=== PATIENT | female | born 1965 | race Caucasian/White ===

== ENCOUNTER → 2018-06-14 | Outpatient (CLI) | payer SELFPAY ==
[~2018-06-14] MED LIST: ACET500; ALBU90OI INH; ALPR.25 PO; ALPR1 PO; AMOCLA500 PO; AMOCLA875 PO; BENZ100A PO; CALCIT950 PO; CHOL10002 PO; CLAR500 PO; CRUTCH3 USE; CYCL10 PO; FLUT110OIA IH; HYDACE5; IBUP800 PO; LEVFLO500 PO; LORA1 PO; META800 PO; NAPR550 PO; ONDA4 PO; OXYACE5T PO; PARO10 PO; PARO20 PO; PENVK500; PHENA200 PO; PROM25 PO; RANI150 PO; RXCYCL10 PO; RXHYDACE PO; RXLORA1 PO; RXNAPNA550 PO; RXONDA4ODT MM; RXPHEN200 PO; SULTRIDS PO; SUMA25
[2018-06-14 19:27] LABS: BASOPHILS ABSOLUTE AUTO 0.04 K/mm3 (0.00-0.23); BASOPHILS PERCENT AUTO 1 % (0-2); EOSINOPHILS PERCENT AUTO 1 % (0-6); Hematocrit 36.8 % (33.0-51.0); Hemoglobin 11.4 g/dL (11.5-16.0); IMMATURE GRAN ABSOLUTE AUTO 0.05 K/mm3 (0.00-0.10); IMMATURE GRAN PERCENT AUTO 1 % (0-1); LYMPHOCYTES ABSOLUTE AUTO 1.31 K/mm3 (0.84-5.20); LYMPHOCYTES PERCENT AUTO 16 % (21-46); MONOCYTES ABSOLUTE AUTO 0.39 K/mm3 (0.16-1.47); MONOCYTES PERCENT AUTO 5 % (4-13); Mean Corpuscular HGB 20.5 pg (26.0-34.0); Mean Corpuscular Volume 66 fL (80-100); Mean Platelet Volume 11.1 fL (9.1-12.4); NEUTROPHILS ABSOLUTE AUTO 6.15 K/mm3 (1.96-9.15); NEUTROPHILS PERCENT AUTO 77 % (41-73); Platelet Count 217 K/mm3 (150-400); RDW Coefficient Variation 16.3 % (11.7-14.2); RDW Standard Deviation 35.8 fL (35.1-46.3); Red Blood Cell Count 5.56 M/mm3 (3.80-5.20); White Blood Cell Count 8.04 K/mm3 (4.00-11.30)
[2018-06-14 19:36] LABS: Alanine Aminotransfer (ALT/SGP 27 U/L (12-78); Albumin, Blood 4.6 g/dL (3.4-5.0); Albumin/Globulin Ratio 1.4 (0.8-1.8); Alk Phos 55 U/L (40-126); Anion Gap 10 mmol/L (6-16); Aspartate Aminotrans (AST/SGOT 16 U/L (12-37); Bilirubin, Total 0.6 mg/dL (0.1-1.0); Blood Urea Nitrogen 11 mg/dL (8-24); Bun/Creatinine Ratio 12.5 (12.0-20.0); CO2, Blood 27 mmol/L (21-32); Calcium, Blood 9.1 mg/dL (8.5-10.1); Chloride, Blood 102 mmol/L (98-108); Creatinine, Blood 0.88 mg/dL (0.40-1.00); Globulin, Blood 3.4 g/dL (2.2-4.0); Glomerular Filtration Rate >60 (60-); Glucose, Blood 105 mg/dL (70-99); Potassium, Blood 3.7 mmol/L (3.5-5.5); Sodium, Blood 139 mmol/L (136-145)
== END | disposition home or self-care (01) ==
LOC: LAB EV 19:22 → LAB SHORT 19:22
PROVIDERS: Physician Assistant
DX: F17.200 Nicotine dependence, unspecified, uncomplicated (principal)
CPT/HCPCS: 80053; 85025

== ENCOUNTER 2018-10-25 10:20 | Emergency (ER) | payer MEDICAID ==
[~2018-10-25] VITALS: Ht 180.3 cm; Wt 104.3 kg
[2018-10-25 11:03] LABS: Influenza A Negative (NEGATIVE); Influenza B Negative (NEGATIVE)
[2018-10-25 11:20] LABS: BASOPHILS ABSOLUTE AUTO 0.04 K/mm3 (0.00-0.23); BASOPHILS PERCENT AUTO 1 % (0-2); EOSINOPHILS ABSOLUTE AUTO 0.06 K/mm3 (0.00-0.68); EOSINOPHILS PERCENT AUTO 1 % (0-6); Hematocrit 37.2 % (33.0-51.0); Hemoglobin 11.2 g/dL (11.5-16.0); IMMATURE GRAN ABSOLUTE AUTO 0.04 K/mm3 (0.00-0.10); IMMATURE GRAN PERCENT AUTO 1 % (0-1); LYMPHOCYTES ABSOLUTE AUTO 0.57 K/mm3 (0.84-5.20); LYMPHOCYTES PERCENT AUTO 10 % (21-46); MONOCYTES ABSOLUTE AUTO 0.62 K/mm3 (0.16-1.47); MONOCYTES PERCENT AUTO 10 % (4-13); Mean Corpuscular HGB 20.4 pg (26.0-34.0); Mean Corpuscular HGB Conc 30.1 g/dL (31.5-36.5); Mean Corpuscular Volume 68 fL (80-100); Mean Platelet Volume 11.2 fL (9.1-12.4); NEUTROPHILS ABSOLUTE AUTO 4.61 K/mm3 (1.96-9.15); NEUTROPHILS PERCENT AUTO 78 % (41-73); Platelet Count 186 K/mm3 (150-400); RDW Coefficient Variation 15.9 % (11.7-14.2); RDW Standard Deviation 37.2 fL (35.1-46.3); White Blood Cell Count 5.94 K/mm3 (4.00-11.30)
[2018-10-25 11:32] LABS: Alanine Aminotransfer (ALT/SGP 23 U/L (12-78); Albumin, Blood 4.1 g/dL (3.4-5.0); Albumin/Globulin Ratio 1.2 (0.8-1.8); Alk Phos 59 U/L (50-136); Anion Gap 9 mmol/L (6-16); Aspartate Aminotrans (AST/SGOT 16 U/L (12-37); Bilirubin, Total 0.5 mg/dL (0.1-1.0); Blood Urea Nitrogen 12 mg/dL (8-24); Bun/Creatinine Ratio 15.4 (12.0-20.0); CO2, Blood 23 mmol/L (21-32); Calcium, Blood 8.6 mg/dL (8.5-10.1); Chloride, Blood 109 mmol/L (98-108); Creatinine, Blood 0.78 mg/dL (0.40-1.00); Globulin, Blood 3.3 g/dL (2.2-4.0); Glomerular Filtration Rate >60 (60-); Glucose, Blood 114 mg/dL (70-99); Potassium, Blood 3.8 mmol/L (3.5-5.5); Sodium, Blood 141 mmol/L (136-145); Total Protein, Blood 7.4 g/dL (6.4-8.2)
[2018-10-25] MEDS ORDERED: Prednisone20 MG PO (11:32)
[2018-10-25] MEDS ORDERED: ALBU90OI61 INH (11:32)
[2018-10-25] MEDS ORDERED: KETO10 PO (11:34)
[2018-10-25] MEDS ORDERED: Zithromax250 MG PO (11:35)
== END 2018-10-25 12:12 | disposition home or self-care (01) ==
LOC: ER 10:20
PROVIDERS: Physician Assistant
DX: J18.9 Pneumonia, unspecified organism (principal); D56.9 Thalassemia, unspecified; D68.0 Von Willebrand disease; K58.9 Irritable bowel syndrome, unspecified; I47.1 Supraventricular tachycardia; F17.210 Nicotine dependence, cigarettes, uncomplicated; Z88.5 Allergy status to narcotic agent
CPT/HCPCS: 36415; 71046; 80053; 83605; 85025; 87804; 94640; 96365; 99283-25; J0696; J7120

== ENCOUNTER 2019-10-10 09:56 | Day surgery (SDC) | payer OTHER ==
[~2019-10-10 09:56] MED LIST changes: +ALBU90OI61 INH; +KETO10 PO; +Prednisone20 MG PO; +Robaxin-750750 MG PO; +Voltaren100 GM TOP; +Zithromax250 MG PO
== END 2019-10-10 22:53 | disposition home or self-care (01) ==
LOC: MOI MAM 09:56
DX: D24.2 Benign neoplasm of left breast (principal)
CPT/HCPCS: 19081; 88305

== ENCOUNTER 2020-04-09 08:37 | Day surgery (SDC) | payer OTHER ==
[~2020-04-09 08:37] MED LIST changes: +CENTRUM SILVER1 EAC2 PO; +LEVSOD25 PO; +MELA3 PO; +OMEP20ER PO; +STOOL SOFTENER PO; +VITAMIN D325 MC3 PO
== END 2020-04-09 22:49 | disposition home or self-care (01) ==
LOC: MOI MAM 08:37
DX: R92.8 Other abnormal and inconclusive findings on diagnostic imaging of breast (principal)
CPT/HCPCS: 19281

== ENCOUNTER 2020-04-27 21:03 | Observation (INO) | payer OTHER ==
[~2020-04-27] VITALS: Ht 172.7 cm; Wt 105.8 kg
[~2020-04-27 21:03] MED LIST changes: -CENTRUM SILVER1 EAC2 PO; +MULTI VITAMIN1 EACH PO; +[UNRECOGNIZED DRUG - OTHER] PO
[2020-04-27] MEDS ORDERED: SYNTHROID50 MC1 PO (21:17)
[2020-04-27] MEDS ORDERED: HYDPAM25 PO (21:18)
[2020-04-27 21:57] LABS: BASOPHILS ABSOLUTE AUTO 0.04 K/mm3 (0.00-0.23); BASOPHILS PERCENT AUTO 1 % (0-2); EOSINOPHILS ABSOLUTE AUTO 0.06 K/mm3 (0.00-0.68); EOSINOPHILS PERCENT AUTO 1 % (0-6); Hematocrit 36.3 % (33.0-51.0); Hemoglobin 11.1 g/dL (11.5-16.0); IMMATURE GRAN ABSOLUTE AUTO 0.04 K/mm3 (0.00-0.10); IMMATURE GRAN PERCENT AUTO 1 % (0-1); LYMPHOCYTES ABSOLUTE AUTO 1.41 K/mm3 (0.84-5.20); LYMPHOCYTES PERCENT AUTO 21 % (21-46); MONOCYTES ABSOLUTE AUTO 0.47 K/mm3 (0.16-1.47); MONOCYTES PERCENT AUTO 7 % (4-13); Mean Corpuscular HGB 20.7 pg (26.0-34.0); Mean Corpuscular HGB Conc 30.6 g/dL (31.5-36.5); Mean Corpuscular Volume 68 fL (80-100); Mean Platelet Volume 10.6 fL (9.1-12.4); NEUTROPHILS ABSOLUTE AUTO 4.78 K/mm3 (1.96-9.15); NEUTROPHILS PERCENT AUTO 70 % (41-73); Platelet Count 217 K/mm3 (150-400); RDW Coefficient Variation 15.2 % (11.7-14.2); RDW Standard Deviation 36.1 fL (35.1-46.3); Red Blood Cell Count 5.37 M/mm3 (3.80-5.20)
[2020-04-27 22:20] LABS: Alanine Aminotransfer (ALT/SGP 23 U/L (12-78); Albumin, Blood 4.3 g/dL (3.4-5.0); Albumin/Globulin Ratio 1.3 (0.8-1.8); Alk Phos 56 U/L (50-136); Anion Gap 7 mmol/L (6-16); Aspartate Aminotrans (AST/SGOT 24 U/L (12-37); Bilirubin, Total 0.8 mg/dL (0.1-1.0); Blood Urea Nitrogen 12 mg/dL (8-24); Bun/Creatinine Ratio 14.9 (12.0-20.0); CO2, Blood 26 mmol/L (21-32); Calcium, Blood 9.2 mg/dL (8.5-10.1); Chloride, Blood 106 mmol/L (98-108); Creatinine, Blood 0.81 mg/dL (0.40-1.00); Free Thyroxine 1.11 ng/dL (0.70-1.60); Globulin, Blood 3.4 g/dL (2.2-4.0); Glomerular Filtration Rate >60 (60-); Glucose, Blood 122 mg/dL (70-99); Magnesium, Blood 2.4 mg/dL (1.6-2.4); Potassium, Blood 3.9 mmol/L (3.5-5.5); Sodium, Blood 139 mmol/L (136-145); Total Protein, Blood 7.7 g/dL (6.4-8.2)
[2020-04-27 22:27] LABS: Acetaminophen, Random <2.0 ug/mL (10.0-30.0)
[2020-04-27 22:28] LABS: Ethanol (Alcohol), Blood, Med <3 mg/dL
--- NOTE | 2020-04-28 01:00 | NUR ---
REC'D. PATIENT FROM ER VIA STRETCHER. PATIENT LIFTED TO ICU BED AND PLACED ON MONITOR. PATIENT OBTUNDED; SPEECH GARBLED; ORIENTED TO SELF ONLY; FOLLOWS SIMPLE COMMANDS; MOVES ALL EXTREMITIES. NS INFUSING AT 100CC/HR VIA PIV TO RIGHT FOREARM; SALINE LOCK NOTED TO LEFT FOREARM. PATIENT NOTED TO HAVE SATS <90% ON ROOM AIR; PLACED ON OXYGEN AT 2L/MIN VIA NASAL CANNULA. UNABLE TO COMPLETE ADMISSION HISTORY DUE TO PATIENT BEING OBTUNDED. BED LOCKED AND IN LOW POSITION. PATIENT ON 1:1 DIRECT OBSERVATION.
--- NOTE | 2020-04-28 01:00 | NUR ---
UNABLE TO ASK PATIENT SUICIDE QUESTIONS DUE TO GARBLED SPEECH AND PATIENT IS OBTUNDED.
[2020-04-28 01:39] LABS: U Amphetamine Screen Not Detected; U Barbituate Screen Not Detected; U Benzodiazapine Screen Not Detected; U Buprenorphine Screen Not Detected; U Cannabinoids Screen Not Detected; U Cocaine Screen Not Detected; U Methadone Screen Not Detected; U Methamphetamine Screen Not Detected; U Opiates Screen Not Detected; U Oxycodone Screen Not Detected; U Phencyclidine Screen Not Detected; U Propoxyphene Screen Not Detected
--- NOTE | 2020-04-28 02:15 | NUR ---
CALLED POISON CONTROL WITH LATEST SALICYLATE LEVEL AND RESULTS FROM URINE DRUG SCREEN. RECOMMENDATIONS REC'D. FROM POISON CONTROL WERE: SEIZURE PRECAUTIONS; IF PATIENT BECOMES TACHYCARDIC, HYPERTENSIVE, OR AGITATED, TO GIVE BENZOS.; EKG NOW AND Q4H; CALL POISON CONTROL IF QRS >100 OR QTC >470. 0230: CALLED DR. LEE WITH ABOVE RECOMMENDATIONS; REC'D. ORDER FOR EKG'S, SEIZURE PRECAUTIONS, AND TO CALL POISON CONTROL WITH QRS OR QTC CHANGES.
--- NOTE | 2020-04-28 02:30 | NUR ---
0230: EKG DONE; QTC 498. 0240: CALLED POISON CONTROL. REC'D. RECOMMENDATION TO KEEP POTASSIUM LEVEL >4.0, AND MAGNESIUM LEVEL >2.0; BASED ON LABS FROM ER, GIVE POTASSIUM 20MEQ IV NOW, AND RECHECK LABS AFTER POTASSIUM FINISHES INFUSING. 0250: CALLED DR. LEE; REC'D. ORDERS FOR POTASSIUM 20MEQ IV NOW, AND REPEAT LABS AFTER INFUSION COMPLETE. 0310: POTASSIUM 20MEQ IV REC'D. FROM LAB AND STARTED INFUSING.
[2020-04-28 06:07] LABS: BASOPHILS ABSOLUTE AUTO 0.04 K/mm3 (0.00-0.23); BASOPHILS PERCENT AUTO 1 % (0-2); EOSINOPHILS ABSOLUTE AUTO 0.14 K/mm3 (0.00-0.68); EOSINOPHILS PERCENT AUTO 2 % (0-6); Hematocrit 32.3 % (33.0-51.0); Hemoglobin 9.6 g/dL (11.5-16.0); IMMATURE GRAN ABSOLUTE AUTO 0.04 K/mm3 (0.00-0.10); IMMATURE GRAN PERCENT AUTO 1 % (0-1); LYMPHOCYTES ABSOLUTE AUTO 1.34 K/mm3 (0.84-5.20); LYMPHOCYTES PERCENT AUTO 22 % (21-46); MONOCYTES ABSOLUTE AUTO 0.43 K/mm3 (0.16-1.47); MONOCYTES PERCENT AUTO 7 % (4-13); Mean Corpuscular HGB 20.7 pg (26.0-34.0); Mean Corpuscular HGB Conc 29.7 g/dL (31.5-36.5); Mean Corpuscular Volume 70 fL (80-100); NEUTROPHILS ABSOLUTE AUTO 4.15 K/mm3 (1.96-9.15); NEUTROPHILS PERCENT AUTO 68 % (41-73); Platelet Count 198 K/mm3 (150-400); RDW Coefficient Variation 15.7 % (11.7-14.2); RDW Standard Deviation 38.5 fL (35.1-46.3); Red Blood Cell Count 4.63 M/mm3 (3.80-5.20); White Blood Cell Count 6.14 K/mm3 (4.00-11.30)
[2020-04-28 06:33] LABS: Alanine Aminotransfer (ALT/SGP 18 U/L (12-78); Albumin, Blood 3.5 g/dL (3.4-5.0); Albumin/Globulin Ratio 1.2 (0.8-1.8); Alk Phos 49 U/L (50-136); Anion Gap 5 mmol/L (6-16); Aspartate Aminotrans (AST/SGOT 8 U/L (12-37); Bilirubin, Total 0.5 mg/dL (0.1-1.0); Blood Urea Nitrogen 11 mg/dL (8-24); Bun/Creatinine Ratio 11.9 (12.0-20.0); CO2, Blood 28 mmol/L (21-32); Calcium, Blood 8.1 mg/dL (8.5-10.1); Chloride, Blood 110 mmol/L (98-108); Creatinine, Blood 0.93 mg/dL (0.40-1.00); Globulin, Blood 2.8 g/dL (2.2-4.0); Glomerular Filtration Rate >60 (60-); Glucose, Blood 105 mg/dL (70-99); Potassium, Blood 3.7 mmol/L (3.5-5.5); Sodium, Blood 143 mmol/L (136-145); Total Protein, Blood 6.3 g/dL (6.4-8.2)
--- NOTE | 2020-04-28 06:34 | NUR ---
SHIFT SUMMARY: PATIENT REMAINS SOMEWHAT OBTUNDED; AWAKENS AFTER REPEATED VERBAL STIMULATION; ATTEMPTS TO ANSWER QUESTIONS, BUT SPEECH IS VERY GARBLED AND SLURRED; FOLLOWS SIMPLE COMMANDS. IV WITH NS INFUSING AT 100CC/HR VIA PIV TO RIGHT FOREARM. EKG DONE AT 0600 WITH QTC 486. SPOKE WITH POISON CONTROL AT 0630; STILL WAITING FOR AM LABS TO REPORT. SBP 90'S; RHYTHM: SINUS RHYTHM, RATE 80'S; AFEBRILE. PATIENT ABLE TO VOID ON BEDPAN. BED LOCKED AND IN LOW POSITION WITH BED ALARM ON; 1:1 DIRECT OBSERVATION MAINTAINED; SEIZURE PADS IN PLACE. CONTINUE POC. AWAITING DAY SHIFT FOR HANDOFF.
--- NOTE | 2020-04-28 06:57 | NUR ---
CALLED POISON CONTROL WITH MOST RECENT LAB RESULTS. RECOMMENDATIONS FROM POISON CONTROL IS FOR POTASSIUM 40 MEQ IV, THEN RECHECK POTASSIUM LEVEL AND EKG. WILL HAVE DAY SHIFT RN CALL MD FOR ORDER.
--- NOTE | 2020-04-28 10:12 | NUR ---
ASSUMED CARE OF PT AT 0700. REPORT FROM CARMEL WILSON. PT WAKES c VERBAL STIMULI. AT START OF SHIFT, PT MOANS, DOES NOT ANSWER QUESTION. AT REASSESSMENT, PT A&OX 3. ANSWERS QUESTIONS APPROPRIATELY. FOLLOWS COMMANDS. DENIES SI/HI. STATES SHE WAS TRYING TO SLEEP. DENIES TAKING SEROQUEL. STATES SHE TOOK THYROID MEDICATION AND PAXIL. CALM AND COOPERATIVE. VSS. PT 1:1 OBS. [address] DE LA PAZ ASSESSMENT. KCL INFUSING. EKG q4 PER POSION CONTROL. WILL RECHECK BMP 1 HR p KCL. WILL CONTINUE TO MONITOR.
--- NOTE | 2020-04-28 10:42 | NUR ---
Safety Plan interview attempted. Pt awalened brifly and refuse at thi time
--- NOTE | 2020-04-28 13:46 | NUR ---
Safety Plan interview attempted. Pt replied in monotones that were inaudible. Did not open her eyes. When asked if to come back later, she shook her head yes. Sitter reported to this hand sign writer that she has been verbal with providers and her. Keke Bellamy M.Ed., [facility]
[2020-04-28 14:24] LABS: Anion Gap 4 mmol/L (6-16); Blood Urea Nitrogen 8 mg/dL (8-24); Bun/Creatinine Ratio 10.3 (12.0-20.0); CO2, Blood 27 mmol/L (21-32); Calcium, Blood 8.4 mg/dL (8.5-10.1); Chloride, Blood 113 mmol/L (98-108); Creatinine, Blood 0.78 mg/dL (0.40-1.00); Glomerular Filtration Rate >60 (60-); Glucose, Blood 97 mg/dL (70-99); Sodium, Blood 144 mmol/L (136-145)
--- NOTE | 2020-04-28 18:03 | NUR ---
SHIFT SUMMARY PT SLEPT MOST OF DAY. WOKE INTERMITTANTLY. PARTICIPATED IN TELEPSYCH CONSULT abdias OQUENDO. REFUSED TO SPEAK abdias ROY FROM [facility]. PT ANSWERS QUESTIONS APPROPRIATELY. FOLLOWS SIMPLE COMMANDS. ONE PERSON STANDBY ASSIST TO BEDSIDE COMMODE. REFUSED FOOD THIS SHIFT. STATUS CHANGED TO PCU, MODERATE SI RISK. CAMERA MONITORING ON. K REPLACED AND EKGS DONE, QTC TRENDED. PER JOYCELYN AT POISON CONTROL, PT MEDICALLY CLEAR. PT HAD MULTIPLE VISITORS AND CALLS THIS SHIFT. DAUGHTER ELINA VISITED. PT REFUSED TO SIGN CONSENT TO RELEASE INFORMATION TO ANYONE AND STATED SHE DID NOT WANT ANY CALLS OR VISITORS THE REST OF THIS NIGHT. PLAN FOR REEVAL abdias OQUENDO TOMORROW AT 1100. 2MD HOLD CONTINUES. VSS. WILL CONTINUE TO MONITOR UNTIL REPORT TO ONCOMING NURSE.
--- NOTE | 2020-04-28 19:00 | NUR ---
ASSUMED CARE OF PATIENT. REC'D. REPORT FROM KATIE IBRAHIM. PATIENT SLEEPING; AWKAENS TO NAME BEING CALLED; SPEECH CLEAR, ORIENTED; PATIENT REFUSES TO ANSWER QUESTIONS, STATES SHE JUST WANTS TO SLEEP; MOVES ALL EXTREMITIES. RHYTHM: NSR; VSS. BED LOCKED AND IN LOW POSITION; CALL SERNA IN REACH. PATIENT ON CAMERA OBSERVATION.
--- NOTE | 2020-04-28 20:01 | NUR ---
PATIENT REFUSING TO ANSWER QUESTIONS REGARDING SUICIDAL IDEATIONS; STATES SHE JUST WANTS TO SLEEP.
--- NOTE | 2020-04-29 04:00 | NUR ---
PATIENT ASKED IF SHE NEEDED TO VOID; PATIENT STATES "I DON'T HAVE TO GO." PATIENT LAST VOIDED APPROX. 12 HOURS AGO. BLADDER SCAN DONE; RESULTS WERE >475CC. PATIENT INFORMED REGARDING ABOVE. PATIENT ASSISTED TO BSC; VOIDED 650CC CLEAR, YELLOW URINE. PATIENT BACK TO BED. BED LOCKED AND IN LOW POSITION WITH BED ALARM ON. PATIENT REMAINS ON VIDEO MONITOR.
--- NOTE | 2020-04-29 06:11 | NUR ---
SHIFT SUMMARY: PATIENT SLEPT ALL NIGHT. PATIENT AWAKENS TO VERBAL STIMULI; ORIENTED; FOLLOWS COMMANDS; MOVES ALL EXTREMITIES; FLAT AFFECT. PATIENT UP ONCE TO THE BSC TO VOID. RHYTHM: NSR WITH QR INTERVAL 0.1 AND QTC 413. NO LABS ORDERED FOR THIS MORNING. BED LOCKED AND IN LOW POSITION; CALL SERNA IN REACH; BED ALARM ON. PATIENT REMAINS ON VIDEO MONITOR. CONTINUE POC. AWAITING DAY SHIFT RN FOR HANDOFF.
--- NOTE | 2020-04-29 09:00 | NUR ---
Received report from Ramin WISLON. Patient has been sleeping and went and allowed her to sleep until am meds. I aowke her to verbal stimuli and was appropriate with one to two word answers. She denies any appetite and refused breakfast at this time and allwed am med aministration. I let her know she had an appoimntment with Alba Napier at 1100 and she stated OK, He has bilateral 20ga IV's in FA and are flushed and SL'd. She moves all extremities and she rolled over and i told her i would let her sleep until appt. Hospitalist by to see patient and made med no tele moderate observation.
--- NOTE | 2020-04-29 11:15 | NUR ---
Patient has been resting and appropriate with care. She had her appt. with jet Napier and looks to be placed in in patient facility. VSS, See EMR. She is independent in bed with positioning.
--- NOTE | 2020-04-29 13:00 | NUR ---
Dr Sal and Dr Lee by to see patient, [facility] [place] sending packets out for placement. No significant changes with patient. She continues to rest in room. VSS, See EMR. She denies any current needs. She states just wants to sleep.
--- NOTE | 2020-04-29 16:00 | NUR ---
Patient called appropriately to get up to use bathroom and had 300ml yellow urine out and went back to bed and want to go back to sleep. She denies any current needs or pain.
--- NOTE | 2020-04-29 18:49 | NUR ---
Charlotte was emotionally withdrawn and sullen. She said little, but agreed to let me pray for her. She clearly did not want a conversation at this time. I will remain available.
--- NOTE | 2020-04-29 19:45 | NUR ---
54 YR OLD FEMALE RECEIVED FROM ICU POST SUICIDAL ATTEMPT OF SUICIDE POST OVERDOSE OF MEDICATIONS. PRESENTS SELF ALERT AND ORIENTED X 4. CONTRACTS NO SELF HARM FOR 24 HRS. (TO BE REASKED TOMORROW). STATED THAT ALL SHE WANTED TO DO AT THIS TIME IS "GET SOME SLEEP". SHORT CALL LIGHT IN PLACE. CAMERA ON FOR CONTINUOUS OBSERVATION. WILL CONTINUE TO MONITOR
--- NOTE | 2020-04-29 20:27 | NUR ---
NURSE ENTERED PT ROOM, PT WATCHING TV. AFFECT WITHDRAWN. SPOKE RE UNDERLYING CAUSE OF APPARENT SUICIDE ATTEMPT. PT DENIED IT WAS A SUICIDE ATTEMPT, RATHER THAT SHE MIXED THE WRONG MEDS, TO TRY TO GET SOME SLEEP. STATED SHE HADNT HAD SLEEP FOR 3 DAYS... AGREED NO SELF HARM. CONTINUOUS VIDEO MONITORING ON. CALL LIGHT IN REACH
--- NOTE | 2020-04-29 22:59 | NUR ---
"NAM" CALLED FROM [facility] [place] RE PT CLEARANCE FOR PLACEMENT RE PHYSICAL HEALTH. WILL CONTACT MATHEW ORTIZ MGR IN THE AM FOR FOLLOW UP.
--- NOTE | 2020-04-30 04:05 | NUR ---
SHIFT SUMMARY HAS BEEN AWAKE AT INTERVALS THIS SHIFT. VOICED DESIRE TO GO OUTSIDE AND HAVE A CIGARETTE, BUT DECIDED NOT TO AFTER BEING REMINDED THAT SHE WAS ON CLOSE OBSERVATION FOR SUICIDE WATCH. CONTINUOUS VIDEO OBSERVATION MAINTAINED FOR SAFETY. CALL LIGHT IN REACH. CURRENTLY RESTING QUIETLY.
--- NOTE | 2020-04-30 10:41 | NUR ---
Suicide Safety Plan interview at 0930 Rm 351. Pt alert, oriented with eye contact and good humor. She denies overdose,and reports she had not slept in 3 days, and was trying to get sleep. She reports taking several of her Paxil. 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 She was future oriented, plans to get another job, and looks forward to seeing her dog and grandchildren. Reports she recently moved in with daughter and has no bills, so is not "too stressed", and has "never been without a job for more than a week". Reviewed crisis phone number and calming techniques to use. She is "annoyed" that her daughter called the ambulance, and she reports the ambulance advised to let her sleep, but daughter insisted. Pt reports she "climbed on the gurney with her Snapple". Keke Bellamy M.Ed., [facility]
--- NOTE | 2020-04-30 16:59 | NUR ---
SHIFT SUMMARY PT RESTING QUIETLY AT START OF SHIFT. UP TO EOB FOR BREAKFAST. INDEPENDENT IN . CALLED FOR ASSIST TO BTHRM. PT ADMITTED FOR MULTIPLE DRUG OVERDOSE. PT REPORTED THAT SHE HAD INSOMNIA AND TOOK SCHEDULED PAXIL, PRN MELATONIN AND TRAZADONE. PT REPORTED THAT SHE HAD NOT SLEPT FOR SEVERAL DAYS AND DID NOT INTEND TO OD. DR CHENG IN TO SEE PT IN AM AND DR DE LA PAZ LATER IN THE DAY. SI HOLD DROPPED AND DR CHENG NOTIFIED BY DR DE LA PAZ. DR HCENG THEN IN TO SEE PT AND DISCUSS D/C ORDERS WITH PT. ORDERS PLACED; THEN REVIEWED WITH PT WHEN COMPLETED. IV SITES D/C'D. PT CALLED HER SON FOR P/U. PT ASSISTED OUT TO SON'S CAR VIA W/C BY PAMELA.
== END 2020-04-30 17:05 | disposition home or self-care (01) ==
LOC: ER 21:03 → ICUW 21:04 → ERHOLD 21:04 → ICUW 04-28 00:53 → MEDS 04-29 19:31
PROVIDERS: Emergency Medicine; Family Medicine; ADMIT Internal Medicine
DX: T43.22 Poisoning by, adverse effect of and underdosing of selective serotonin reuptake inhibitors (principal); D64.9 Anemia, unspecified; D68.0 Von Willebrand disease; G43.909 Migraine, unspecified, not intractable, without status migrainosus; C50.919 Malignant neoplasm of unspecified site of unspecified female breast; Z88.5 Allergy status to narcotic agent; F17.210 Nicotine dependence, cigarettes, uncomplicated; F32.9 Major depressive disorder, single episode, unspecified; I95.9 Hypotension, unspecified; Z79.899 Other long term (current) drug therapy; T38 Poisoning by, adverse effect of and underdosing of hormones and their synthetic substitutes and antagonists, not elsewhere classified
CPT/HCPCS: 36415; 80048; 80053; 83735; 84439; 84443; 85025; 93005; 93010; 96360; 96361; 96372; 99285-25; G0378; G0480; J1650; J3480; J7030

== ENCOUNTER 2020-05-07 14:11 | Observation (INO) | payer OTHER ==
[~2020-05-07] VITALS: Ht 177.8 cm; Wt 104.3 kg
[~2020-05-07 14:11] MED LIST changes: +HYDPAM25 PO; +SYNTHROID50 MC1 PO
[2020-05-07 15:03] LABS: Source, Urine Clean Catch
[2020-05-07 15:19] LABS: Bilirubin, Urine Neg (Neg); Blood, Urine Neg (Neg); Glucose Qualitative, Urine Neg (Neg); Ketones, Urine Neg (Neg); Leukocyte Esterase, Urine Neg (Neg); Nitrite, Urine Neg (Neg); Protein, Urine Neg (Neg); Urobilinogen, Urine NORM (Normal)
[2020-05-07 15:28] LABS: Appearance, Urine Clear (Clear); Color, Urine Yellow (P-Yellow)
[2020-05-07 15:31] LABS: BASOPHILS ABSOLUTE AUTO 0.05 K/mm3 (0.00-0.23); BASOPHILS PERCENT AUTO 1 % (0-2); EOSINOPHILS ABSOLUTE AUTO 0.14 K/mm3 (0.00-0.68); EOSINOPHILS PERCENT AUTO 2 % (0-6); Hematocrit 39.1 % (33.0-51.0); Hemoglobin 11.9 g/dL (11.5-16.0); IMMATURE GRAN ABSOLUTE AUTO 0.03 K/mm3 (0.00-0.10); IMMATURE GRAN PERCENT AUTO 1 % (0-1); LYMPHOCYTES PERCENT AUTO 24 % (21-46); MONOCYTES ABSOLUTE AUTO 0.35 K/mm3 (0.16-1.47); MONOCYTES PERCENT AUTO 6 % (4-13); Mean Corpuscular HGB Conc 30.4 g/dL (31.5-36.5); Mean Corpuscular Volume 69 fL (80-100); Mean Platelet Volume 11.4 fL (9.1-12.4); NEUTROPHILS ABSOLUTE AUTO 3.87 K/mm3 (1.96-9.15); NEUTROPHILS PERCENT AUTO 66 % (41-73); Platelet Count 229 K/mm3 (150-400); RDW Coefficient Variation 15.6 % (11.7-14.2); RDW Standard Deviation 37.1 fL (35.1-46.3); Red Blood Cell Count 5.68 M/mm3 (3.80-5.20); White Blood Cell Count 5.84 K/mm3 (4.00-11.30)
[2020-05-07 15:33] LABS: U Amphetamine Screen Not Detected; U Barbituate Screen Not Detected; U Benzodiazapine Screen Not Detected; U Buprenorphine Screen Not Detected; U Cannabinoids Screen Not Detected; U Cocaine Screen Not Detected; U Methadone Screen Not Detected; U Methamphetamine Screen Not Detected; U Opiates Screen Not Detected; U Oxycodone Screen Not Detected; U Phencyclidine Screen Not Detected; U Propoxyphene Screen Not Detected
[2020-05-07 15:42] LABS: Alanine Aminotransfer (ALT/SGP 20 U/L (12-78); Albumin, Blood 4.5 g/dL (3.4-5.0); Albumin/Globulin Ratio 1.3 (0.8-1.8); Alk Phos 68 U/L (50-136); Anion Gap 7 mmol/L (6-16); Aspartate Aminotrans (AST/SGOT 13 U/L (12-37); Bilirubin, Total 0.5 mg/dL (0.1-1.0); Blood Urea Nitrogen 12 mg/dL (8-24); Bun/Creatinine Ratio 18.5 (12.0-20.0); CO2, Blood 25 mmol/L (21-32); Calcium, Blood 9.4 mg/dL (8.5-10.1); Chloride, Blood 109 mmol/L (98-108); Creatinine, Blood 0.65 mg/dL (0.40-1.00); Ethanol (Alcohol), Blood, Med <3 mg/dL; Globulin, Blood 3.5 g/dL (2.2-4.0); Glomerular Filtration Rate >60 (60-); Glucose, Blood 105 mg/dL (70-99); Potassium, Blood 4.1 mmol/L (3.5-5.5); Salicylate 3.5 mg/dL (2.8-20.0); Sodium, Blood 141 mmol/L (136-145)
[2020-05-07] MEDS ORDERED: TRAZ50 PO (15:49)
[2020-05-07 15:51] LABS: Acetaminophen, Random <2.0 ug/mL (10.0-30.0)
== END 2020-05-10 11:40 ==
LOC: ER 14:11 → EOR 14:12 → UNDODEPER 05-10 15:50
PROVIDERS: Physician Assistant; ADMIT Emergency Medicine
DX: F32.9 Major depressive disorder, single episode, unspecified (principal); Z20.828 Contact with and (suspected) exposure to other viral communicable diseases; E03.9 Hypothyroidism, unspecified; Z60.9 Problem related to social environment, unspecified; F17.200 Nicotine dependence, unspecified, uncomplicated; Z88.5 Allergy status to narcotic agent
CPT/HCPCS: 36415; 80053; 81003; 81025; 84443; 85025; 99285; A9270; A9270-GY; G0378; G0480; Q3014; U0003

== ENCOUNTER 2025-05-21 02:04 | Observation (INO) | payer OTHER ==
[~2025-05-21] VITALS: Ht 177.8 cm; Wt 118.2 kg
[2025-05-21] VITALS (17 sets, daily range): BP systolic 105–136; BP diastolic 34–97
[~2025-05-21 02:04] MED LIST changes: +AZIT250 PO; +EUTHYROX100 MC1 PO; +OMEP20ER; +PAXIL40 M1 PO; +TRAZ50 PO
[2025-05-21] MEDS ORDERED: FAMO10 PO (02:21)
[2025-05-21] MEDS ORDERED: Ondansetron HCl 2 MG / ML 2ML Vial IV ONE (02:40)
[2025-05-21 03:46] LABS: BASOPHILS ABSOLUTE AUTO 0.04 K/mm3 (0.00-0.23); BASOPHILS PERCENT AUTO 1 % (0-2); EOSINOPHILS ABSOLUTE AUTO 0.10 K/mm3 (0.00-0.68); EOSINOPHILS PERCENT AUTO 2 % (0-6); Hematocrit 38.1 % (33.0-51.0); Hemoglobin 11.7 g/dL (11.5-16.0); IMMATURE GRAN ABSOLUTE AUTO 0.03 K/mm3 (0.00-0.10); IMMATURE GRAN PERCENT AUTO 1 % (0-1); LYMPHOCYTES ABSOLUTE AUTO 1.54 K/mm3 (0.84-5.20); LYMPHOCYTES PERCENT AUTO 31 % (21-46); MONOCYTES ABSOLUTE AUTO 0.44 K/mm3 (0.16-1.47); MONOCYTES PERCENT AUTO 9 % (4-13); Mean Corpuscular HGB Conc 30.7 g/dL (31.5-36.5); Mean Corpuscular Volume 65 fL (80-100); NEUTROPHILS ABSOLUTE AUTO 2.86 K/mm3 (1.96-9.15); NEUTROPHILS PERCENT AUTO 57 % (41-73); NRBC ABSOLUTE 0.00 K/mm3 (0.00-0.02); NRBC Auto 0.0 /100 WBC (0.0-0.2); Platelet Count 248 K/mm3 (150-400); RDW Coefficient Variation 15.8 % (11.7-14.2); RDW Standard Deviation 35.4 fL (35.1-46.3)
[2025-05-21 03:57] LABS: Alanine Aminotransfer (ALT/SGP 39.0 U/L (12-78); Albumin, Blood 4.1 g/dL (3.4-5.0); Albumin/Globulin Ratio 1.1 (0.8-1.8); Anion Gap 10.0 mmol/L (3-11); Aspartate Aminotrans (AST/SGOT 16.0 U/L (12-37); Bilirubin, Total 0.5 mg/dL (0.1-1.0); Blood Urea Nitrogen 14.0 mg/dL (8-24); CO2, Blood 27.0 mmol/L (21-32); Calcium, Blood 9.7 mg/dL (8.5-10.1); Chloride, Blood 105.0 mmol/L (98-108); Creatinine, Blood 0.73 mg/dL (0.40-1.00); Globulin, Blood 3.6 g/dL (2.2-4.0); Glucose, Blood 152.0 mg/dL (70-99); Magnesium, Blood 2.2 mg/dL (1.6-2.4); Potassium, Blood 3.7 mmol/L (3.5-5.5); Sodium, Blood 138.0 mmol/L (136-145); Total Protein, Blood 7.7 g/dL (6.4-8.2)
[2025-05-21 04:04] LABS: Source, Urine Voided
[2025-05-21 04:14] LABS: Bilirubin, Urine Neg (Neg); Glucose Qualitative, Urine Neg (Neg); Ketones, Urine Neg (Neg); Leukocyte Esterase, Urine Neg (Neg); Protein, Urine Neg (Neg); Specific Gravity, Urine 1.015 (1.003-1.022); Urobilinogen, Urine 2+ (Normal)
[2025-05-21 04:27] LABS: Color, Urine Yellow (P-Yellow)
[2025-05-21] MEDS ORDERED: Magnesium Hydroxide Conc 10 ML UDC PO PRN (05:50)
[2025-05-21] MEDS ORDERED: FLU VACC TS2025-26(6MOS UP)/PF 45 MCG/0.5 ML SYRINGE IM SCH (05:50)
[2025-05-21] MEDS ORDERED: Morphine Sulfate 4 MG/1 ML Injection IV PRN ×2 (05:55→10:50)
[2025-05-21] MEDS ORDERED: Piperacillin/Tazobactam Sod 3.375 GM in NS 100 ML IV SCH (06:00)
--- NOTE | 2025-05-21 08:03 | NUR ---
ARRIVAL TO SURG FLOOR TO FLOOR VIA WC. A&O x4, VSS, HRR, LUNGS CLEAR. NPO STATUS CONFIRMED. STATES MILD NAUSEA & NO VOMITING. MILD PAIN. AMB TO BATHROOM INDEPENDENTLY. TO DAY SURGERY AT THIS TIME.
[2025-05-21] MEDS ORDERED: Rocuronium Bromide 10 MG/ML 5ML Injection IV ONE (08:21)
[2025-05-21] MEDS ORDERED: Sugammadex Sodium 200 MG/2ML SDV (100 MG/ML) ONE (08:21)
[2025-05-21] MEDS ORDERED: FentaNYL Citrate 50 MCG/ML 2 ML Injection ONE ×2 (08:21→11:06)
[2025-05-21] MEDS ORDERED: Dexamethasone Sod Phos 10 MG/ML 1ML VIAL ONE (08:21)
[2025-05-21] MEDS ORDERED: Ondansetron HCl 2 MG / ML 2ML Vial ONE (08:21)
[2025-05-21] MEDS ORDERED: VITAMIN D5000 UNIT PO (08:23)
[2025-05-21] MEDS ORDERED: Metoclopramide HCl 5MG / ML 2ML Vial IV PRN (08:25)
[2025-05-21] MEDS ORDERED: Midazolam HCl 1MG / ML 2ML Vial IV PRN (08:25)
[2025-05-21] MEDS ORDERED: FentaNYL Citrate 50 MCG/ML 2 ML Injection IV PRN ×3 (08:25→08:30)
[2025-05-21] MEDS ORDERED: Ondansetron HCl 2 MG / ML 2ML Vial IV PRN (08:25)
[2025-05-21] MEDS ORDERED: HYDROmorphone HCl/Pf 1MG SYR IV PRN (08:30)
[2025-05-21] MEDS ORDERED: Lactobacil 2-S.Thermo-Bifido 1 1 Cap PO SCH (09:00)
[2025-05-21] MEDS ORDERED: Bupivacaine 0.5% HCl 5 MG/ML 30MLVIAL ONE (09:04)
--- NOTE | 2025-05-21 09:32 | NUR ---
REPORTED TO DR LEE THAT DDAVP FINISHED INFLUSING AT 0930.
[2025-05-21 09:33] LABS: Prothrombin Time Results 10.6 Sec (9.7-11.5)
[2025-05-21] MEDS ORDERED: Ketorolac Tromethamine 30mg Vial ONE (10:24)
--- NOTE | 2025-05-21 11:46 | NUR ---
ARRIVAL TO SURG FLOOR TO FLOOR VIA GURNEY. A&O x4, VSS. PT SLEEPY, BUT FOLLOWS COMMANDS APPROPRIATELY. STAND & PIVOT TRASNFER TO BED. LAP SITES x4 w/BANDAIDS, NO DRAINAGE, C/D/I. BOWEL TONES HYPOACTIVE. REPORTS MILD PAIN AT THIS TIME. CURRENTLY ON 3L O2 NC w/SATS >93%. SNACKS & DRINKS GIVEN. CURRENTLY RESTING IN BED w/CALL LIGHT WITHIN REACH.
--- NOTE | 2025-05-21 17:37 | NUR ---
Pt. is awake in bed when she welcomes my visit. Pt. is pleasant. Facilitated a life review and listened with empathy interest. Considered matters of prince and belief. Pt. verbalized that she is in [place], primarily to care for a son who has terminal cancer. Pt. displays evidence of great strength and hope. Pt. welcomed prayer. Prayed with the Pt. Pt. verbalized gratitude for the spiritual care visit.
--- NOTE | 2025-05-21 17:50 | NUR ---
SHIFT SUMMARIES NO ACUTE CHANGES THIS SHIFT. A&O x44, VSS. CURRENTLY ON 3L O2 NC w/SATS >93%. TOLERATING PO INTAKE, NO N/V. LAP SITES x4 w/BANDAIDS, C/D/I. INDEPENDENT IN ROOM. VOIDED SUCCESSFULLY. PAIN CONTROLLED WELL PER EMAR. CURRENTLY RESTIN IN BED w/CALL LIGHT WITHIN REACH.
[2025-05-22 06:18] VITALS: BP 104/80
[2025-05-22 06:32] LABS: Hematocrit 31.6 % (33.0-51.0); Hemoglobin 9.7 g/dL (11.5-16.0); Mean Corpuscular HGB Conc 30.7 g/dL (31.5-36.5); Mean Corpuscular Volume 67 fL (80-100); NRBC ABSOLUTE 0.00 K/mm3 (0.00-0.02); NRBC Auto 0.0 /100 WBC (0.0-0.2); Platelet Count 199 K/mm3 (150-400); RDW Coefficient Variation 15.6 % (11.7-14.2); RDW Standard Deviation 36.2 fL (35.1-46.3)
--- NOTE | 2025-05-22 06:34 | NUR ---
SHIFT SUMMARY POD 1 LAP PREETI. LAP SITES X4 C/D/I. A&O X4. VSS. PT C/O OF INCREASED PAIN. PT MEDICATED PER EMAR AND KPAD APPLIED TO ABDOMEN WITH PT REPORTING DECREASE IN PAIN. PT INDEPENDENT IN ROOM. NO SIGNS OF DISTRESS NOTED. PLAN FOR DISCHARGE TODAY. CALL LIGHT WITHIN REACH.
[2025-05-22 06:58] LABS: Alanine Aminotransfer (ALT/SGP 32.0 U/L (12-78); Albumin, Blood 3.5 g/dL (3.4-5.0); Albumin/Globulin Ratio 1.1 (0.8-1.8); Anion Gap 7.0 mmol/L (3-11); Aspartate Aminotrans (AST/SGOT 14.0 U/L (12-37); Bilirubin, Total 0.5 mg/dL (0.1-1.0); Blood Urea Nitrogen 11.0 mg/dL (8-24); CO2, Blood 28.0 mmol/L (21-32); Calcium, Blood 8.5 mg/dL (8.5-10.1); Chloride, Blood 103.0 mmol/L (98-108); Creatinine, Blood 0.61 mg/dL (0.40-1.00); Globulin, Blood 3.2 g/dL (2.2-4.0); Glucose, Blood 117.0 mg/dL (70-99); Magnesium, Blood 2.0 mg/dL (1.6-2.4); Phosphorus, Blood 3.4 mg/dL (2.5-4.9); Potassium, Blood 3.5 mmol/L (3.5-5.5); Sodium, Blood 134.0 mmol/L (136-145); Total Protein, Blood 6.7 g/dL (6.4-8.2)
[2025-05-22 07:19] VITALS: BP 108/75
[2025-05-22] MEDS ORDERED: Multivitamins 1 Tab PO SCH (09:00)
[2025-05-22 11:05] LABS: Hematocrit 32.1 % (33.0-51.0); Hemoglobin 9.7 g/dL (11.5-16.0)
[2025-05-22 12:58] VITALS: BP 106/79
[2025-05-22] MEDS ORDERED: OXYC5 PO (12:58)
--- NOTE | 2025-05-22 13:11 | NUR ---
discharged PT DC'D IV INDEPENDENTLY OF STAFF. NO BLEEDING NOTED OR EMEMA NOTED. REVIEWED DC INSTRUCTIONS W/PT; PT IN HURRY TO DC, STATED SHE UNDERSTOOD. PT LEFT UNIT IN WC W/POSSESSIONS AND DC PAPERWORK IN HAND TO MEET RIDE OUTSIDE.
== END 2025-05-22 13:04 | disposition home or self-care (01) ==
LOC: ER 02:04 → SURS 02:05 → ERHOLD 02:05 → ER 02:05 → SURS 02:05 → ERHOLD 05:45 → SURS 05:45 → ERHOLD 05:46 → SURS 07:52 → ERHOLD 07:52 → SURS 05-22 13:04
PROVIDERS: Family Medicine; Internal Medicine; Student in an Organized Health Care Education/Training Program; Surgery; ADMIT Internal Medicine
PROC: BF52200 Other Imaging of Gallbladder using Fluorescing Agent, Indocyanine Green Dye, Intraoperative (ICD-10-PCS; principal; 2025-05-21 09:00)
PROC: 0FT44ZZ Resection of Gallbladder, Percutaneous Endoscopic Approach (ICD-10-PCS; principal; 2025-05-21 09:00)
DX: K80.12 Calculus of gallbladder with acute and chronic cholecystitis without obstruction (principal); E03.9 Hypothyroidism, unspecified; D56.3 Thalassemia minor; D68.00 Von Willebrand disease, unspecified; K58.9 Irritable bowel syndrome, unspecified; Z79.890 Hormone replacement therapy; Z79.899 Other long term (current) drug therapy; Z88.5 Allergy status to narcotic agent
CPT/HCPCS: 36415; 76705; 80053; 81003; 83690; 83735; 84100; 85014; 85018; 85025; 85027; 85610; 85730; 86140; 88304; 96374; 99285-25; A9270; G0378; J1100; J1885; J2250; J2270; J2405; J2543; J2597; J2704; J3010; J7120